=== PATIENT | male | born 1960 | race African-American/Black ===

== ENCOUNTER 2020-04-01 09:39 | Emergency (ER) | payer MEDICAID ==
[~2020-04-01] VITALS: Ht 172.7 cm; Wt 73.0 kg
[2020-04-01] MEDS ORDERED: ONDANSETRON HCL 4MG/2ML INJ IV STA ×2 (10:18→12:17)
[2020-04-01] MEDS ORDERED: MORPHINE SULFATE 4 MG/ML CPJ (NOT FOR IM USE) IV STA ×2 (10:18→12:17)
[2020-04-01] MEDS ORDERED: SODIUM CHLORIDE 0.9% 1,000 ML IV ONE (10:30)
[2020-04-01 10:33] LABS: HEMATOCRIT. 44.6 % (42.0-52.0); HEMOGLOBIN. 15.3 g/dL (14.0-18.0); MEAN CORPUSCULAR HEMOGLOBIN 31.2 pg (28.0-32.0); MEAN CORPUSCULAR VOLUME 91.1 fL (80.0-94.0); PLATELET 449 x1000/uL (130-400); RED CELL DISTRIBUTION WIDTH 13.9 % (11.6-14.6)
[2020-04-01 10:41] LABS: CHLORIDE 101 mEq/L (98-107)
[2020-04-01 10:43] LABS: INR 1.1; PROTHROMBIN TIME 11.4 sec (9.6-11.0)
[2020-04-01 11:37] LABS: PLATELET ESTIMATE INCREASED
[2020-04-01 15:00] VITALS: BP 160/70
[2020-04-01] MEDS ORDERED: ONDANSETRON HCL 4MG/2ML INJ IV ONE (15:15)
== END 2020-04-01 16:56 | disposition short-term general hospital (02) ==
LOC: ER 10:19
DX: K40.30 Unilateral inguinal hernia, with obstruction, without gangrene, not specified as recurrent (principal)
CPT/HCPCS: 36415; 74176; 80053; 83690; 85025; 85610; 93005; 96361; 96374; 96375; 96376; 99285; J2270; J2405; J7030